=== PATIENT | female | born 1945 | race Two or more races ===

== ENCOUNTER 2021-09-22 08:31 | Outpatient (CLI) | payer OTHER ==
[~2021-09-22 08:31] MED LIST: CLONAZEPAM0.5 MG; DIOVAN HCT 3201 EAC1; HUMALOG100 UNIT/1; LANTUS SOL100 UNIT/1; SYNTHROID50 MCG; TOPROL XL25 M1; VITAMIN D400 UNI2
== END 2021-09-22 08:37 | disposition home or self-care (01) ==
LOC: TOM 08:31
PROVIDERS: ATTEND Internal Medicine Gastroenterology
DX: K56.51 Intestinal adhesions [bands], with partial obstruction (principal); R19.4 Change in bowel habit

== ENCOUNTER 2023-05-02 16:22 | Emergency (ER) | payer OTHER ==
[~2023-05-02] VITALS: Ht 160 cm; Wt 80.7 kg
[2023-05-02] MEDS ORDERED: BACTRIM DS TAB1 EACH PO (20:00)
== END 2023-05-02 20:03 | disposition home or self-care (01) ==
LOC: ER 16:22
DX: L02.211 Cutaneous abscess of abdominal wall (principal); J45.909 Unspecified asthma, uncomplicated; I11.9 Hypertensive heart disease without heart failure; E78.00 Pure hypercholesterolemia, unspecified; E03.9 Hypothyroidism, unspecified

== ENCOUNTER 2024-05-02 18:58 | Emergency (ER) | payer OTHER ==
[~2024-05-02] VITALS: Ht 157.5 cm; Wt 73.0 kg
[~2024-05-02 18:58] MED LIST changes: +BACTRIM DS TAB1 EACH PO
[2024-05-02] MEDS ORDERED: ATACAND32 MG PO (19:27)
[2024-05-02] MEDS ORDERED: NORVASC2.5 M1 PO (19:28)
[2024-05-02] MEDS ORDERED: AMBIEN10 MG PO (19:28)
[2024-05-02] MEDS ORDERED: FAMOTIDINE/PF 20 MG/2 ML VIAL ONE (20:00)
[2024-05-02] MEDS ORDERED: DICYCLOMINE HCL 10 MG CAPSULE PO ONE ×2 (20:00)
[2024-05-02] MEDS ORDERED: 0.9 % SODIUM CHLORIDE 500 ML IV SCH (20:00)
[2024-05-02] MEDS ORDERED: FAMOTIDINE/PF 20 MG/2 ML VIAL IV ONE (20:00)
[2024-05-02 20:25] LABS: HEMATOCRIT 38.9 % (36.0-45.00); HEMOGLOBIN 13.2 g/dL (12.0-15.00); MEAN CELL VOLUME 88.7 fL (80.00-100.00); MEAN CORPUSCULAR HGB CONC 33.8 g/dl (32.0-36.0); PLATELET COUNT 228 K/uL (150-450); RED BLOOD COUNT 4.39 M/uL (4.00-6.00); RED CELL DISTRIBUTION WIDTH 14.6 % (11.5-14.5)
[2024-05-02 20:38] LABS: URINE APPEARANCE Cloudy; URINE BILIRRUBIN Negative (NEGATIVE); URINE BLOOD Negative; URINE COLOR Yellow; URINE GLUCOSE Negative (NEGATIVE); URINE KETONE Trace (NEGATIVE); URINE LEUKOCYTE Trace; URINE NITRATE Negative; URINE PROTEIN Negative (NEGATIVE); URINE UROBILINOGEN 0.2 E.U./dl
[2024-05-02 20:39] LABS: URINE EPITHELIAL CELLS 2.9 uL (0.0-38.8); URINE WBC 8.3 uL (0.0-23.2)
[2024-05-02 20:48] LABS: URINE CAST 0.15 uL (0.0-1.40)
[2024-05-02 21:04] LABS: CALCIUM 9.1 mg/dL (8.5-10.1); CREATININE SERUM 0.88 mg/dL (0.55-1.02); GFR 62.31; POTASSIUM 4.27 mEq/L (3.5-5.1)
[2024-05-02] MEDS ORDERED: PEPCID20 MG PO (21:53)
[2024-05-02] MEDS ORDERED: INTESTINEX680 M1 PO (21:53)
[2024-05-02] MEDS ORDERED: DICY20TA PO (21:53)
== END 2024-05-02 22:04 | disposition home or self-care (01) ==
LOC: ER 18:59
PROVIDERS: General Practice
DX: K52.9 Noninfective gastroenteritis and colitis, unspecified (principal); R10.9 Unspecified abdominal pain; I10 Essential (primary) hypertension; E03.8 Other specified hypothyroidism; E11.9 Type 2 diabetes mellitus without complications; Z79.4 Long term (current) use of insulin
CPT/HCPCS: 36415; 74022; 96365; 96366; 99283; J3490; J7042

== ENCOUNTER 2024-08-21 19:19 | Emergency (ER) | payer OTHER ==
[~2024-08-21] VITALS: Ht 160 cm; Wt 70.3 kg
[~2024-08-21 19:19] MED LIST changes: +AMBIEN10 MG PO; +ATACAND32 MG PO; +DICY20TA PO; +INTESTINEX680 M1 PO; +NORVASC2.5 M1 PO; +PEPCID20 MG PO
[2024-08-21] MEDS ORDERED: GABAPENTIN300 M2 PO (20:05)
[2024-08-21] MEDS ORDERED: DOXAZOSIN MESYLA2 MG PO (20:05)
[2024-08-21 21:22] LABS: HEMATOCRIT 37.2 % (36.0-45.00); HEMOGLOBIN 12.7 g/dL (12.0-15.00); MEAN CELL VOLUME 89.5 fL (80.00-100.00); MEAN CORPUSCULAR HEMOGLOBIN 30.6 pg (27.00-32.0); MEAN CORPUSCULAR HGB CONC 34.2 g/dl (32.0-36.0); PLATELET COUNT 247 K/uL (150-450); RED BLOOD COUNT 4.15 M/uL (4.00-6.00); RED CELL DISTRIBUTION WIDTH 15.2 % (11.5-14.5)
[2024-08-21 21:29] LABS: PH,URINE 5.5 (5.0-8.0); URINE APPEARANCE Clear; URINE BILIRRUBIN Negative (NEGATIVE); URINE BLOOD Trace; URINE COLOR Yellow; URINE GLUCOSE Negative (NEGATIVE); URINE KETONE Negative (NEGATIVE); URINE LEUKOCYTE Moderate; URINE NITRATE Negative; URINE PROTEIN Negative (NEGATIVE); URINE UROBILINOGEN 0.2 E.U./dl
[2024-08-21 21:33] LABS: URINE BACTERIA 2454.4 uL (0.0-1933); URINE EPITHELIAL CELLS 2.4 uL (0.0-38.8); URINE RBC 8.5 uL (0.0-20.8); URINE WBC 785.7 uL (0.0-23.2)
[2024-08-21 21:44] LABS: URINE CAST 0.61 uL (0.0-1.40)
[2024-08-21 21:45] LABS: ALBUMIN 3.6 gm/dL (3.4-5.0); BILIRUBIN TOTAL 0.36 mg/dL (0.3-1.2); CREATININE SERUM 0.86 mg/dL (0.55-1.02); GFR 63.98; GLOBULINA 3.2 G/DL (2.4-3.5); POTASSIUM 3.85 mEq/L (3.5-5.1); TOTAL PROTEIN 6.8 gm/dL (6.4-8.2)
[2024-08-21] MEDS ORDERED: CEFTRIAXONE SODIUM 1,000 MG VIAL IM ONE (23:15)
== END 2024-08-21 23:50 | disposition home or self-care (01) ==
LOC: ER 19:19
PROVIDERS: Preventive Medicine Public Health & General Preventive Medicine
DX: N39.0 Urinary tract infection, site not specified (principal); E11.9 Type 2 diabetes mellitus without complications; Z79.4 Long term (current) use of insulin; I10 Essential (primary) hypertension; E03.8 Other specified hypothyroidism; K57.30 Diverticulosis of large intestine without perforation or abscess without bleeding
CPT/HCPCS: 36415; 74176; 96372; 99284; J0696

== ENCOUNTER 2025-08-27 08:10 | Outpatient (CLI) | payer OTHER ==
[~2025-08-27 08:10] MED LIST changes: +DOXAZOSIN MESYLA2 MG PO; +GABAPENTIN300 M2 PO
== END 2025-08-27 08:16 | disposition home or self-care (01) ==
LOC: TOM 08:10
PROVIDERS: ATTEND Internal Medicine Gastroenterology
DX: R19.4 Change in bowel habit (principal); K56.51 Intestinal adhesions [bands], with partial obstruction; K57.30 Diverticulosis of large intestine without perforation or abscess without bleeding